=== PATIENT | male | born 1995 | race Caucasian/White ===

== ENCOUNTER 2021-05-06 18:11 | Emergency (ER) | payer OTHER ==
--- NOTE | 2021-05-06 21:20 | ER ---
Nurse's Notes [facility] Name: Armin Murphy Age: 25 yrs Sex: Male : 1995 Arrival Date: 05/06/2021 Time: 18:14 Bed 12 Private MD: Eben Blas R Diagnosis: SARS-associated coronavirus as the cause of diseases classified elsewhere Presentation: 05/06 19:38 Chief complaint: Patient states: he tested positive for Covid here this morning has bb fatigue doesn't feel like eating. Coronavirus screen: Client reports previous positive COVID test result. Date of collection: May 06, 2021. Ebola Screen: No symptoms or risks identified at this time. Initial Sepsis Screen: Does the patient meet any 2 criteria? No. Patient's initial sepsis screen is negative. Does the patient have a suspected source of infection? No. Patient's initial sepsis screen is negative. Risk Assessment: Do you want to hurt yourself or someone else? Patient reports no desire to harm self or others. Onset of symptoms was April 29, 2021. 19:38 Method Of Arrival: Ambulatory 19:38 Acuity: [place] 4 bb Triage Assessment: 21:32 General: Appears in no apparent distress. Behavior is calm, cooperative, appropriate kg for age, quiet. Respiratory: Reports cough that is non-productive, Onset: The symptoms/episode began/occurred gradually, the patient has mild shortness of breath. Historical: - Allergies: 19:41 No Known Allergies; bb - Home Meds: 19:41 None [Active]; bb - PMHx: 19:41 None; bb - PSHx: 19:41 Tonsillectomy; bb - Immunization history:: Adult Immunizations up to date, Client reports having NOT received the Covid vaccine. - Social history:: Smoking status: Patient denies any tobacco usage or history of. Screenin:30 Abuse screen: Denies threats or abuse. Denies injuries from another. Nutritional kg screening: No deficits noted. Tuberculosis screening: No symptoms or risk factors identified. Fall Risk None identified. Assessment: 21:32 Pain: Denies pain. Respiratory: Airway is patent Respiratory effort is even, unlabored, kg relaxed, Breath sounds are clear bilaterally. 21:33 Cardiovascular: Rhythm is regular. kg Vital Signs: 19:28 BP 105 / 58; Pulse 89; Resp 20; Pulse Ox 97% on R/A; kg 19:38 BP 98 / 60; Pulse 96; Resp 22; Temp 98.3(O); Pulse Ox 97% on R/A; Weight 99.34 kg (R); bb Height 5 ft. 11 in. (180.34 cm) (R); Pain 2/10; 19:38 Body Mass Index 30.54 (99.34 kg, 180.34 cm) bb ED Course: 18:14 Patient arrived in ED. mr 18:14 Eben Blas MD is Private Physician. mr 19:41 Triage completed. bb 19:41 Arm band placed on Patient placed in waiting room, Patient notified of wait time. bb Family accompanied patient. 21:01 Moreno Alvarez PA is PHCP. cp 21:01 Moreno Sunshine MD is Attending Physician. cp 21:19 Eben Blas MD is Referral Physician. cp 21:30 Carina Hayes, BHARATH is Primary Nurse. kg 21:30 Patient has correct armband on for positive identification. kg 21:30 No provider procedures requiring assistance completed. Patient did not have IV access kg during this emergency room visit. Administered Medications: No medications were administered Outcome: 21:20 Discharge ordered by MD. cp 21:30 Discharged to home ambulatory. kg 21:30 Condition: good 21:30 Discharge instructions given to patient, Instructed on discharge instructions, follow up and referral plans. Demonstrated understanding of instructions, follow-up care, medications, Prescriptions given X 2. 21:34 Patient left the ED. kg Signatures: Bety Davis mr Sonia Mckeon RN RN Moreno Forbes PA PA cp Carina Hayes, RN RN kg
--- NOTE | 2021-05-06 21:21 | EDPHYS ---
Physician Documentation [facility] Name: Armin Murphy Age: 25 yrs Sex: Male : 1995 Arrival Date: 05/06/2021 Time: 18:14 Bed 12 Private MD: Eben Blas R ED Physician Moreno Sunshine HPI: 05/06 21:14 This 25 yrs old Male presents to ER via Ambulatory with complaints of COVID+, cp Shortness Of Breath. 21:14 The patient or guardian reports cough, that is intermittent. cp 21:14 Onset: The symptoms/episode began/occurred 4 day(s) ago. Modifying factors: the cp symptoms are aggravated by activity. Associated signs and symptoms: Pertinent positives: sore throat, anorexia, loss of taste, Pertinent negatives: chest pain, diarrhea, fever, vomiting. Severity of symptoms: in the emergency department the symptoms are unchanged. Patient reports having positive test for COVID-19 this morning that was ordered by DR Blas. Historical: - Allergies: 19:41 No Known Allergies; bb - Home Meds: 19:41 None [Active]; bb - PMHx: 19:41 None; bb - PSHx: 19:41 Tonsillectomy; bb - Immunization history:: Adult Immunizations up to date, Client reports having NOT received the Covid vaccine. - Social history:: Smoking status: Patient denies any tobacco usage or history of. ROS: 21:15 Constitutional: Positive for body aches, fatigue, poor PO intake, Negative for fever. cp 21:15 Eyes: Negative for injury, pain, redness, and discharge. cp 21:15 ENT: Positive for sore throat, loss of taste, Negative for drainage from ear(s), ear pain, sinus congestion, difficulty swallowing, difficulty handling secretions. 21:15 Cardiovascular: Negative for chest pain, palpitations. 21:15 Respiratory: Positive for cough, shortness of breath, Negative for wheezing. 21:15 Abdomen/GI: Positive for anorexia, Negative for abdominal pain, vomiting, diarrhea, constipation. 21:15 Skin: Negative for rash. 21:15 Neuro: Negative for altered mental status, dizziness, headache, weakness. 21:15 All other systems are negative. Exam: 21:18 Constitutional: The patient appears in no acute distress, alert, awake, non-toxic, well cp developed, well nourished. 21:18 Head/Face: Normocephalic, atraumatic. cp 21:18 Eyes: Periorbital structures: appear normal, Conjunctiva: normal, no exudate, no injection, Sclera: no appreciated abnormality, Lids and lashes: appear normal, bilaterally. 21:18 ENT: External ear(s): are unremarkable, Ear canal(s): are normal, clear, TM's: dullness, bilaterally, Nose: is normal, Mouth: Lips: moist, Oral mucosa: moist, Posterior pharynx: Airway: no evidence of obstruction, patent, Tonsils: no enlargement, no exudate, swelling, is not appreciated, erythema, that is mild, exudate, is not appreciated. 21:18 Neck: ROM/movement: is normal, is supple, without pain, no range of motions limitations, no meningismus. 21:18 Chest/axilla: Inspection: normal, Palpation: is normal, no crepitus, no tenderness. 21:18 Cardiovascular: Rate: normal, Rhythm: regular. 21:18 Respiratory: the patient does not display signs of respiratory distress, Respirations: normal, no use of accessory muscles, no retractions, labored breathing, is not present, Breath sounds: are clear throughout, no wheezing, decreased breath sounds, are not appreciated, stridor, is not appreciated. 21:18 Abdomen/GI: Inspection: abdomen appears normal, Palpation: abdomen is soft and non-tender, in all quadrants, rebound tenderness, is not appreciated, voluntary guarding, is not appreciated, involuntary guarding, is not appreciated. 21:18 Neuro: Orientation: to person, place \T\ time. Mentation: is normal, Motor: moves all fours, strength is normal, Gait: is steady, at a normal pace, without difficulty. Vital Signs: 19:28 BP 105 / 58; Pulse 89; Resp 20; Pulse Ox 97% on R/A; kg 19:38 BP 98 / 60; Pulse 96; Resp 22; Temp 98.3(O); Pulse Ox 97% on R/A; Weight 99.34 kg (R); bb Height 5 ft. 11 in. (180.34 cm) (R); Pain 2/10; 19:38 Body Mass Index 30.54 (99.34 kg, 180.34 cm) bb MDM: 21:14 Patient medically screened. cp 21:15 Differential diagnosis: pneumonia, respiratory failure, dehydration, electrolyte cp abnormality. 21:20 Data reviewed: vital signs, nurses notes. cp 21:20 Counseling: I had a detailed discussion with the patient and/or guardian regarding: the cp historical points, exam findings, and any diagnostic results supporting the discharge/admit diagnosis, to return to the emergency department if symptoms worsen or persist or if there are any questions or concerns that arise at home. ED course: VSS. Patient appears non-toxic and no signs of respiratory distress. Will discharge to home for continued monitoring and to continue to 10 day quarantine. Administered Medications: No medications were administered Disposition: 05/07 09:54 Co-signature as Attending Physician, Moreno Sunshine MD I agree with the assessment and sandra plan of care. Disposition Summary: 05/06/21 21:20 Discharge Ordered Location: Home cp Problem: new cp Symptoms: are unchanged cp Condition: Stable cp Diagnosis - SARS-associated coronavirus as the cause of diseases classified elsewhere cp Followup: cp - With: Eben Blas MD - When: 2 - 3 days - Reason: Worsening of condition Discharge Instructions: - Discharge Summary Sheet cp - COVID-19 cp - Things to Know about the COVID-19 Pandemic - [facility] cp - 10 Things You Can Do to Manage Your COVID-19 Symptoms at Home - [facility] cp - COVID-19: Quarantine vs. Isolation - [facility] cp - Prevent the Spread of COVID-19 if You Are Sick - [facility] cp Forms: - Medication Reconciliation Form cp - Thank You Letter cp - Antibiotic Education cp - Prescription Opioid Use cp Prescriptions: - Zofran 4 mg Oral Tablet - take 1 tablet by ORAL route every 12 hours As needed; 20 tablet; Refills: 0, cp Product Selection Permitted - Tessalon Perles 100 mg Oral Capsule - take 2 capsule by ORAL route every 8 hours As needed; 30 capsule; Refills: 0, cp Product Selection Permitted Signatures: Moreno Sunshine MD MD cha Ballard, Brenda, RN RN Moreno Forbes PA PA cp
[2021-05-06 21:39] VITALS: O2SAT 97
[2021-05-06 21:41] VITALS: BP 98/60; TEMP 98.3
== END 2021-05-06 21:34 | disposition home or self-care (01) ==
LOC: ER 18:11
DX: U07.1 COVID-19 (principal)
CPT/HCPCS: 99282